=== PATIENT | male | born 1955 | race Caucasian/White ===

== ENCOUNTER 2016-02-22 07:38 | Day surgery (SDC) | payer OTHER ==
[2016-02-21 09:35] VITALS: BMI 19.9
[2016-02-22] MEDS ORDERED: PROPOFOL 20 ML ONE ×2 (07:40)
[2016-02-22] MEDS ORDERED: LIDOCAINE HCL/PF 2% SDV 5ML VIAL ONE (07:41)
[2016-02-22 09:13] VITALS: TEMP 97.6
[2016-02-22 09:33] VITALS: BP 112/70; PULSE 56
--- NOTE | 2016-02-23 11:23 | PATH ---
Surgical Pathology Report Patient Name: OTTO CHACON [facility]. Rec. #: [id number] /Age/Gender: 1955 (Age: 60) / M Account: [id number] Location: [facility]-ENDOSCOPY Taken: 02/22/2016 Received: 02/22/2016 Reported: 02/23/2016 Physicians: Jason Mg M.D. Specimen(s) Received BX SIGMOID Clinical History Family history of colonic polyps Polyp Final Diagnosis COLON, SIGMOID, BIOPSY: FECAL MATERIAL. NO INTACT MUCOSA IDENTIFIED. Comment: Recommend correlation with clinical findings and follow up as clinically indicated. Electronically Signed Jose Gutierrez M.D. Gross Description Received in formalin, labeled "sigmoid," is a 0.6 x 0.4 x 0.1 cm aggregate of organic debris, consistent with plant material. No definite soft tissue is identified. The formalin is filtered and the specimen is entirely submitted in one cassette. /02/22/2016 saudi02/22/2016
== END 2016-02-22 10:21 | disposition home or self-care (01) ==
LOC: FASU-ENDO 07:38
PROVIDERS: ATTEND Internal Medicine Gastroenterology
PROC: 0DBN8ZX Excision of Sigmoid Colon, Via Natural or Artificial Opening Endoscopic, Diagnostic (ICD-10-PCS; principal; 2016-02-22 08:38)
DX: Z86.010 Personal history of colon polyps (principal); Z83.71 Family history of colonic polyps; D12.5 Benign neoplasm of sigmoid colon; K64.8 Other hemorrhoids
CPT/HCPCS: 88305-TC

== ENCOUNTER 2021-11-30 08:06 | Day surgery (SDC) | payer OTHER ==
[2021-11-27 10:53] VITALS: BMI 19.5
[2021-11-30] MEDS ORDERED: PROPOFOL 60 ML ONE (08:07)
[2021-11-30] MEDS ORDERED: LIDOCAINE HCL/PF 2% SDV 5ML VIAL ONE (08:07)
[2021-11-30 10:16] VITALS: TEMP 97.7
[2021-11-30 10:17] VITALS: BP 104/54; PULSE 55; RESP 18
== END 2021-11-30 10:19 | disposition home or self-care (01) ==
LOC: FASU-ENDO 08:06
PROVIDERS: ATTEND Internal Medicine Gastroenterology
PROC: 0DJD8ZZ Inspection of Lower Intestinal Tract, Via Natural or Artificial Opening Endoscopic (ICD-10-PCS; principal; 2021-11-30 09:02)
DX: Z12.11 Encounter for screening for malignant neoplasm of colon (principal); Z86.010 Personal history of colon polyps; Z83.71 Family history of colonic polyps